=== PATIENT | female | born 1985 | race Caucasian/White ===

== ENCOUNTER → 2019-05-08 | Outpatient (CLI) | payer MEDICAID | END | disposition home or self-care (01) | LOC: RAD 16:44 → MERGE 16:44 | PROVIDERS: ATTEND Family Medicine | DX: R51 Headache (principal) | CPT/HCPCS: 70551 ==

== ENCOUNTER 2020-06-03 07:05 | Outpatient (CLI) | payer MEDICAID | END 2020-06-03 23:59 | disposition home or self-care (01) | LOC: CVU 07:05 | PROVIDERS: ATTEND Internal Medicine Cardiovascular Disease | DX: I49.8 Other specified cardiac arrhythmias (principal); R00.2 Palpitations | CPT/HCPCS: 93306 ==